=== PATIENT | female | born 1940 | race Caucasian/White ===

== ENCOUNTER 2017-07-02 10:25 | Outpatient (CLI) | payer MEDICARE ==
--- NOTE | 2017-07-07 18:00 | Mammography Report ---
DIGITAL SCREENING MAMMOGRAM: 07/02/2017 CLINICAL INDICATION: A 76-year-old with personal history of left breast cancer status post mastectomy and chemotherapy. COMPARISON: 09/2014, 04/2009. TECHNIQUE: Right CC and MLO views were obtained. FINDINGS: The right breast again demonstrates scattered fibroglandular densities. Punctate, typically benign calcifications are present. No suspicious masses, clustered microcalcifications, or regions of architectural distortion are identified. IMPRESSION: BENIGN FINDINGS. RECOMMENDATION: Routine annual screening unless otherwise clinically indicated. BI-RADS category 2 benign findings. STANDARD QUALIFYING STATEMENTS 1. This examination was reviewed with the aid of Computed-Aided Detection (CAD). 2. A negative or benign imaging report should not delay biopsy if clinically suspicious findings are present. Consider surgical consultation if warranted. More than 5% of cancers are not identified by imaging. 3. Dense breasts may obscure an underlying neoplasm. TD: 07/07/2017 15:50
== END 2017-07-02 10:26 | disposition home or self-care (01) ==
LOC: DI.S 10:25
PROVIDERS: ATTEND Internal Medicine
DX: Z12.31 Encounter for screening mammogram for malignant neoplasm of breast (principal); Z08 Encounter for follow-up examination after completed treatment for malignant neoplasm; Z85.3 Personal history of malignant neoplasm of breast

== ENCOUNTER 2017-07-14 08:11 | Outpatient (CLI) | payer MEDICARE ==
--- NOTE | 2017-07-14 12:18 | Ultrasound Report ---
COMPLETE ABDOMINAL ULTRASOUND: 07/14/2017 CLINICAL INDICATION: Right upper quadrant mass on clinical exam. TECHNIQUE: Real-time scanning was performed with data entry representative static images obtained. FINDINGS: The liver measures 18.7 cm. Hepatic echogenicity is increased, compatible with fatty infiltration. No focal parenchymal lesion is seen. The common bile duct measures 7 mm. The gallbladder demonstrates multiple calculi. No wall thickening or pericholecystic fluid is present. The visualized pancreas appears unremarkable. The kidneys are normal, with the right measuring 10.9 cm, and the left measuring 10.9 cm. The spleen measures 12.9 cm, and appears unremarkable. The abdominal aorta is normal in caliber. The inferior vena cava is unremarkable. No free fluid is present. IMPRESSION: ENLARGED LIVER, WITH FATTY INFILTRATION. CHOLELITHIASIS. NO EVIDENT MASS IDENTIFIED IN THE RIGHT UPPER QUADRANT, AND THE PATIENT WAS UNABLE TO LOCALIZE A PALPABLE ABNORMALITY AT THE TIME OF THE EXAMINATION. TD: 07/14/2017 12:00
== END 2017-07-14 08:12 | disposition home or self-care (01) ==
LOC: DI 08:11
PROVIDERS: ATTEND Internal Medicine
DX: R19.01 Right upper quadrant abdominal swelling, mass and lump (principal); K80.20 Calculus of gallbladder without cholecystitis without obstruction; K76.0 Fatty (change of) liver, not elsewhere classified
CPT/HCPCS: 76700

== ENCOUNTER 2017-07-14 11:36 | Emergency (ER) | payer MEDICARE ==
[2017-07-14] MEDS ORDERED: PROPARACAINE 0.5% OPHTH DROPS 15 ML RIGHTEYE STA (12:10)
[2017-07-14] MEDS ORDERED: levoFLOXacin 0.5% OPHTH DROPS 5 ML RIGHTEYE STA (12:43)
--- NOTE | 2017-07-14 12:46 | ED Physician Documentation ---
PD HPI OPHTHO - Stated complaint Stated Complaint: F/O R EYE - Chief complaint Chief Complaint: Heent - History obtained from History obtained from: Patient - History of Present Illness Timing - onset: Yesterday (76-year-old woman who does not wear contacts had gradual onset pain and a foreign body sensation of the right eye without visual deficit since yesterday while she was working outside.) Review of Systems Constitutional: denies: Fever, Chills Eyes: reports: Discharge, Irritation. 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 HEENT: Tonsil/Adenoidectomy - Present Medications Home Medications: Ambulatory Orders Medication Instructions Recorded Confirmed Metformin HCl 500 mg PO BID 02/05/14 03/15/14 Aspirin [Aspir 81] 81 mg PO DAILY 03/15/14 03/15/14 - Allergies Allergies/Adverse Reactions: Allergies Allergy/AdvReac Type Severity Reaction Status Date / Time Penicillins Allergy Unknown Verified 02/05/14 15:40 - Social History Does the pt smoke?: No Smoking Status: Never smoker Does the pt drink ETOH?: No Does the pt have substance abuse?: No - Immunizations Immunizations: TDAP >10years/unknown, Other immun current - POLST Patient has POLST: No PD ED PE NORMAL - Vitals Vital signs reviewed: Yes - General General: Alert and oriented X 3, No acute distress - HEENT HEENT: PERRL, EOMI, Other (There is no foreign body on the cornea or in the conjunctival fornices. She does have an area of flourescein uptake at about 2: 00 that is most consistent with a corneal abrasion but there is some infiltrate concerning for corneal ulcer.) - Neck Neck: Supple, no meningeal sign, No bony TTP - Neuro Neuro: Alert and oriented X 3, Normal speech - Psych Psych: Normal mood, Normal affect Results - Vitals Vitals: Vital Signs - 24 hr 07/14/17 11:44 Temperature 36.2 C L Heart Rate 94 Respiratory 16 Rate Blood Pressure 146/81 H O2 Saturation 99 Oxygen O2 Source Room air PD MEDICAL DECISION MAKING - ED course ED course: Seems more like a corneal abrasion, but could be very small corneal ulcer. She was started on topical madai quinolone and advised to use it every 2 hours until she sees an eye doctor within the next 24 hours. She declined prescription pain medication. Departure - Departure Disposition: 01 Home, Self Care Clinical Impression: Corneal abrasion, right Qualifiers: Encounter type: initial encounter Qualified Code(s): S05.01XA - Injury of conjunctiva and corneal abrasion without foreign body, right eye, initial encounter Hypertension Qualifiers: Hypertension type: essential hypertension Qualified Code(s): I10 - Essential ( primary) hypertension Condition: Good Record reviewed to determine appropriate education?: Yes Follow-Up: Filipe Sin MD [Provider Admit Priv/Credential] - Comments: Use the eyedrop to the right eye, 1 drop every 2 hours until you follow-up with an Investor Relations Manager. You need to see an quantitative consultant within the next 24 hours , you can either use Dr. Sin listed on this form or [facility], their phone number is [phone]. Return if worsening.
[2017-07-14 12:55] VITALS: BP 138/81
== END 2017-07-14 12:53 | disposition home or self-care (01) ==
LOC: ED 11:36
DX: S05.01XA Injury of conjunctiva and corneal abrasion without foreign body, right eye, initial encounter (principal); X58.XXXA Exposure to other specified factors, initial encounter; R19.01 Right upper quadrant abdominal swelling, mass and lump; I10 Essential (primary) hypertension; E11.9 Type 2 diabetes mellitus without complications; Z79.84 Long term (current) use of oral hypoglycemic drugs; Z79.82 Long term (current) use of aspirin
CPT/HCPCS: 76700; 99283; A9270; J3490

== ENCOUNTER 2019-05-29 17:14 | Outpatient (CLI) | payer MEDICARE | END 2019-05-29 17:15 | disposition EMS.NT | LOC: EMS 17:14 | PROVIDERS: ATTEND Surgery | DX: M79.602 Pain in left arm (principal) ==

== ENCOUNTER 2019-08-30 07:19 | Outpatient (CLI) | payer MEDICARE ==
[2019-08-30 15:42] LABS: BASOPHILS # (AUTO) 0.1 10^3/uL (0.0-0.1); BASOPHILS % (AUTO) 1.2 %; EOSINOPHILS # (AUTO) 0.3 10^3/uL (0.0-0.7); EOSINOPHILS % (AUTO) 4.8 %; HGB - HEMOGLOBIN 15.3 g/dL (12.0-16.0); LYMPHOCYTES # (AUTO) 1.8 10^3/uL (1.5-3.5); LYMPHOCYTES % (AUTO) 26.1 %; MEAN CORPUSCULAR HEMOGLOBIN 29.1 pg (27.0-31.0); MEAN PLATELET VOLUME 11.3 fL (7.9-10.8); MONOCYTES # (AUTO) 0.7 10^3/uL (0.0-1.0); MONOCYTES % (AUTO) 10.5 %; NEUTROPHILS # (AUTO) 3.9 10^3/uL (1.5-6.6); RED BLOOD COUNT 5.25 10^6/uL (4.20-5.40); RED CELL DISTRIBUTION WIDTH 13.1 % (12.0-15.0); WHITE BLOOD COUNT 6.8 x10^3/uL (4.8-10.8)
[2019-08-30 16:04] LABS: CREATININE,URINE 79.8 mg/dL; MICROALBUMIN,URINE 0.4 mg/dL (0-300.0)
[2019-08-30 16:17] LABS: ALBUMIN 4.3 g/dL (3.2-5.5); ALBUMIN/GLOBULIN RATIO 1.4 (1.0-2.2); ALKALINE PHOSPHATASE 64 IU/L (42-121); ALT ALANINE AMINOTRANSFERASE 21 IU/L (10-60); AST ASPARTATE AMINOTRANSFERASE 15 IU/L (10-42); BILIRUBIN,TOTAL 0.9 mg/dL (0.2-1.0); BUN - BLOOD UREA NITROGEN 20 mg/dL (6-20); CALCIUM 9.4 mg/dL (8.5-10.3); CARBON DIOXIDE - CO2 26 mmol/L (21-32); CHLORIDE 99 mmol/L (101-111); CHOL/HDL RATIO 2.9 (<4.4); CHOLESTEROL 198 mg/dL; CREATININE 0.9 mg/dL (0.4-1.0); GLUCOSE 152 mg/dL (70-100); HDL CHOLESTEROL 68 mg/dL; LDL CHOLESTEROL,CALCULATED 98 mg/dL; LDL/HDL RATIO 1.4 (<4.4); SODIUM 136 mmol/L (135-145); TOTAL PROTEIN 7.3 g/dL (6.7-8.2); VLDL CHOLESTEROL 32 mg/dL
[2019-08-30 16:23] LABS: PLATELET ESTIMATE, MANUAL NORMAL (130-450,000) (NORMAL); PLATELET MORPHOLOGY PLATELET CLUMPING (NORMAL); RBC MORPHOLOGY (MULTIPLE) NORMAL APPEARANCE (NORMAL)
[2019-08-30 16:33] LABS: HB2 TOTAL 16.5 g/dL; HEMOGLOBIN A1C 0.74 g/dL; HEMOGLOBIN A1C % 6.3 % (4.6-6.2)
== END 2019-08-30 07:20 | disposition home or self-care (01) ==
LOC: LAB.S 07:19
PROVIDERS: ATTEND Nurse Practitioner Family
DX: E11.9 Type 2 diabetes mellitus without complications (principal)
CPT/HCPCS: 36415; 80053; 80061; 82043; 82570; 83036; 83721; 85025

== ENCOUNTER 2021-09-06 10:39 | Outpatient (CLI) | payer MEDICARE ==
--- NOTE | 2021-09-06 12:55 | XRAY Report ---
PROCEDURE: Chest 2 View X-Ray INDICATIONS: CHRONIC COUGH TECHNIQUE: 2 view(s) of the chest. COMPARISON: None. FINDINGS: Surgical changes and devices: Surgical clips are projecting over the region of left axilla and left u pper lung field. Lungs and pleura: No pleural effusions or pneumothorax. Lungs are clear. Mediastinum: Mediastinal contours are normal. Heart size is normal. Bones and chest wall: No suspicious bony abnormalities. Soft tissues appear unremarkable. IMPRESSION: No acute cardiopulmonary pathology. Reviewed by: Aram Amaya MD on 09/06/2021 12:54 PM PDT Approved by: Aram Amaya MD on 09/06/2021 12:54 PM PDT Station ID: [id number]
== END 2021-09-06 10:40 | disposition home or self-care (01) ==
LOC: DI.S 10:39
PROVIDERS: ATTEND Nurse Practitioner Family
DX: R05.3 Chronic cough (principal)

== ENCOUNTER 2021-10-28 06:19 | Day surgery (SDC) | payer MEDICARE ==
[2021-10-28] MEDS ORDERED: LACTATED RINGERS 1,000 ML IV ONE ×2 (06:46→08:25)
--- NOTE | 2021-10-28 07:22 | ANESTHESIA ---
Pre-Anesthesia VS, & Labs - Diagnosis positive cologuard - Procedure colonoscopy Vital Signs: Temp Pulse Resp BP Pulse Ox 36.6 C 83 17 171/75 H 96 10/28/21 06:47 10/28/21 06:47 10/28/21 06:47 10/28/21 06:47 10/28/21 06:47 Height: 5 ft 9 in Weight (kg): 97.9 kg Body Mass Index: 31.8 BMI Classification: Obese - NPO >8 hours - Is Patient ?: No - Lab Results Current Lab Results: Laboratory Tests 10/28/21 06:57: POC Whole Bld Glucose 173 H Home Medications and Allergies Home Medications: Ambulatory Orders Atorvastatin [Lipitor] 10 mg PO DAILY 10/22/21 Calcium Carbonate [Calcium] 1,200 mg PO DAILY 10/22/21 Cholecalciferol (Vitamin D3) [Vitamin D3] 125 mcg PO DAILY 10/22/21 Lisinopril [Zestril] 10 mg PO DAILY 10/22/21 Metformin HCl 1,000 mg PO BID 02/05/14 Aspirin [Aspir 81] 81 mg PO DAILY 03/15/14 Atorvastatin [Lipitor] 10 mg PO DAILY 10/22/21 Calcium Carbonate [Calcium] 1,200 mg PO DAILY 10/22/21 Cholecalciferol (Vitamin D3) [Vitamin D3] 125 mcg PO DAILY 10/22/21 Lisinopril [Zestril] 10 mg PO DAILY 10/22/21 Allergies/Adverse Reactions: Allergies Allergy/AdvReac Type Severity Reaction Status Date / Time Penicillins Allergy Unknown Verified 10/28/21 06:46 Anes History & Medical History - Anesthetic History Anesthesia Complications: reports: No previous complications - Medical History Cardiovascular: reports: Hypertension, High cholesterol Pulmonary: reports: None Gastrointestinal: reports: None Urinary: reports: Nocturia, Frequency Musculoskeletal: reports: Osteopenia Endocrine/Autoimmune: reports: Type 2 diabetes Skin: reports: None Smoking Status: Never smoker History of Cancer?: Yes (breast cancer) - Surgical History Eyes Ears Nose Throat (EENT): reports: Tonsil/Adenoidectomy Gynecologic: reports: Mastectomy Exam General: Alert Dental: WNL Mouth Opening: Greater than 4 Fingerbreadths Mallampati classification: II Respiratory: Lungs clear Cardiovascular: Regular rate Plan Anesthesia Type: Total IV Consent for Procedure(s) Verified and Reviewed: Yes Code Status: Attempt Resuscitation ASA classification: 3-Severe systemic disease Is this case an emergency?: No
[2021-10-28] MEDS ORDERED: PROPOFOL 500 MG/50 ML 500 MG/50 ML VIAL ONE (07:24)
[2021-10-28] MEDS ORDERED: SIMETHICONE 40 MG/0.6 ML 30 ML BOTTLE PO ONE (07:54)
[2021-10-28] MEDS ORDERED: PROPOFOL 200 MG/20 ML VIAL IVP ONE (08:30)
[2021-10-28 08:59] VITALS: BP 129/75
--- NOTE | 2021-10-28 11:26 | ANESTHESIA POST OP EVALUATION ---
Anesthesia Post Eval - Post Anesthesia Eval Vitals: Last Vital Signs Temp 36.3 C L 10/28/21 08:58 Pulse 64 10/28/21 08:58 Resp 15 10/28/21 08:58 BP 129/75 10/28/21 08:58 Pulse Ox 96 10/28/21 08:58 CV Function Including HR & BP: Stable Pain Control: Satisfactory Nausea & Vomiting: Negative Mental Status: Baseline Respiratory Status: Airway Patent Hydration Status: Satisfactory Anesthesia Complications: None
== END 2021-10-28 06:20 | disposition home or self-care (01) ==
LOC: SDS 06:19
PROVIDERS: ATTEND Surgery
PROC: 0DBN8ZX Excision of Sigmoid Colon, Via Natural or Artificial Opening Endoscopic, Diagnostic (ICD-10-PCS; 2021-10-28)
PROC: 0DBH8ZX Excision of Cecum, Via Natural or Artificial Opening Endoscopic, Diagnostic (ICD-10-PCS; principal; 2021-10-28 07:30)
DX: C18.7 Malignant neoplasm of sigmoid colon (principal); K57.30 Diverticulosis of large intestine without perforation or abscess without bleeding; K63.5 Polyp of colon; I10 Essential (primary) hypertension; E11.9 Type 2 diabetes mellitus without complications; E66.9 Obesity, unspecified; Z68.31 Body mass index [BMI] 31.0-31.9, adult; Z79.84 Long term (current) use of oral hypoglycemic drugs; Z87.891 Personal history of nicotine dependence
CPT/HCPCS: 45385; A9270; J7120

== ENCOUNTER 2021-12-11 13:56 | Outpatient (CLI) | payer MEDICARE ==
[2021-12-11 14:06] LABS: HCT - HEMATOCRIT 43.8 % (37.0-47.0); HGB - HEMOGLOBIN 14.1 g/dL (12.0-16.0); MEAN CORPUSCULAR HEMOGLOBIN 29.3 pg (27.0-31.0); MEAN CORPUSCULAR HGB CONC 32.2 g/dL (32.0-36.0); MEAN CORPUSCULAR VOLUME 90.9 fL (81.0-99.0); RED BLOOD COUNT 4.82 10^6/uL (4.20-5.40); RED CELL DISTRIBUTION WIDTH 12.4 % (12.0-15.0); WHITE BLOOD COUNT 10.8 x10^3/uL (4.8-10.8)
== END 2021-12-11 13:57 | disposition home or self-care (01) ==
LOC: LAB 13:56
PROVIDERS: ATTEND Surgery
DX: C18.7 Malignant neoplasm of sigmoid colon (principal)
CPT/HCPCS: 36415; 85027

== ENCOUNTER 2021-12-31 15:08 | Outpatient (CLI) | payer MEDICARE ==
[2021-12-31] MEDS ORDERED: iohexoL-300 100 ML VIAL ONE (15:17)
[2021-12-31 15:41] LABS: CREATININE 0.9 mg/dL (0.4-1.0)
[2021-12-31] MEDS ORDERED: iohexoL-300 100 ML VIAL IVP ONE (17:43)
--- NOTE | 2022-01-01 08:53 | CT Report ---
PROCEDURE: ABDOMEN/PELVIS W INDICATIONS: COLON CA TECHNIQUE: After the administration of contrast, 5 mm thick sections acquired from the diaphragms to the sym physis. 5 mm thick coronal and sagittal reformats were acquired. For radiation dose reduction, the following was used: automated exposure control, adjustment of mA and/or kV according to patient size . COMPARISON: None. FINDINGS: Image quality: Excellent. ABDOMEN: Lung bases: Lung bases are clear. Heart size is normal. Solid organs: Liver: The liver has no mass or intrahepatic biliary ductal dilatation. The portal vein and hepatic veins are patent. Biliary: The gallbladder has a stone near the neck of the gallbladder. The gallbladder is distended, however there is no wall thickening or pericholecystic fluid or inflammation to suggest cholecystitis . [] Pancreas: The pancreas has no mass or ductal dilatation. No surrounding inflammation. Spleen: Normal size. No mass. Adrenal glands: No hypertrophy or nodules. Kidneys: No obstructive calculus or hydronephrosis. No solid mass. No cystic mass. Bowel: The distal esophagus and stomach are normal. The small bowel has a normal caliber and appeara nce. The terminal ileum is normal. The large bowel has diverticulosis without evidence of diverticu litis. No colonic mass is identified by CT. Free air/free fluid: No free air or free fluid. Abdominal wall: No abdominal wall mass or hernia. Retroperitoneum: No retroperitoneal or mesenteric adenopathy by size criteria. Aorta and inferior ve na cava are normal in size. Lymph nodes: No adenopathy. PELVIS: Genitourinary: Bladder wall thickness is normal. Miscellaneous: No inguinal hernias or adenopathy. BONES: No suspicious bony lesions. No vertebral body compression fractures. Degenerative changes of the lumbar spine with disc disease at L2-3. Changes of prior right laminotomy at L4 are seen. IMPRESSION: 1. No acute abnormality. 2. No colonic mass or evidence of metastatic disease is identified. 3. Small gallstone in the neck of the gallbladder with enlargement of the gallbladder but no evidence of acute cholecystitis. Consider ultrasound if there is symptomatology related to the gallbladder. Reviewed by: Oj Mercer on 01/01/2022 8:51 AM PST Approved by: Oj Mercer on 01/01/2022 8:51 AM PST Station ID: [id number]
--- NOTE | 2022-01-01 09:09 | CT Report ---
PROCEDURE: CHEST W INDICATIONS: COLON CA CONTRAST:100mL Omni 300 TECHNIQUE: After the administration of intravenous contrast, 1 mm axial images were acquired from the pulmonary apices through the posterior costophrenic angles. Axial 5 mm soft tissue kernel reconstructions were performed as well as 8 mm axial MIP and coronal and sagittal 5 mm reformations. For radiation dose reduction, the following was used: automated exposure control, adjustment of mA and/or kV according to patient size. COMPARISON: None. FINDINGS: Image quality: Excellent. Lungs and pleura: 7 x 5 mm nodule in the right lower lobe series 3 image 233. Several subtle groundg lass opacities measuring approximately 1 to 2 cm in the apices bilaterally. No acute air space opacit ies. No pleural effusions or pneumothorax. Central and peripheral airways are patent and normal in caliber. Mediastinum: Heart size is normal. No pericardial effusion. No mediastinal or hilar adenopathy by size criteria. Thoracic aorta and central pulmonary arteries are normal in size. Esophagus is nazia l in caliber. No hiatal hernia. Bones and chest wall: No suspicious bony lesions. No vertebral body compression fractures. No axil armando or supraclavicular adenopathy by size criteria. The thyroid is normal in size and there are no incidental findings.. Abdomen: Visualized upper abdominal solid organs appear normal. Upper abdominal bowel loops are nor mal in caliber. IMPRESSION: 1. 7 x 5 mm nodule in the right lower lobe. No comparison imaging available to assess for stability, therefore a metastatic lesion cannot be excluded. This lesion is too small for biopsy. Follow-up CT i n 3 months to assess for growth. 2. Nonspecific subtle groundglass opacities in the apices. 3. No other evidence of metastatic disease. Reviewed by: Oj Mercer on 01/01/2022 9:07 AM [facility] Approved by: Oj Mercer on 01/01/2022 9:07 AM PST Station ID: [id number]
== END 2021-12-31 15:09 | disposition home or self-care (01) ==
LOC: LAB 15:08
PROVIDERS: ATTEND Surgery
DX: C18.7 Malignant neoplasm of sigmoid colon (principal); K80.20 Calculus of gallbladder without cholecystitis without obstruction; K82.8 Other specified diseases of gallbladder; R91.1 Solitary pulmonary nodule; R91.8 Other nonspecific abnormal finding of lung field
CPT/HCPCS: 36415; 71260; 74177; 82565; Q9967

== ENCOUNTER 2022-03-31 16:19 | Outpatient (CLI) | payer MEDICARE | END 2022-03-31 16:20 | disposition critical access hospital (66) | LOC: EMS 16:19 | DX: M54.2 Cervicalgia (principal); M54.6 Pain in thoracic spine; R42 Dizziness and giddiness; R11.0 Nausea; W18.39XA Other fall on same level, initial encounter; Y93.01 Activity, walking, marching and hiking; Y92.832 Beach as the place of occurrence of the external cause | CPT/HCPCS: A0425; A0427 ==

== ENCOUNTER 2022-03-31 16:28 | Emergency (ER) | payer MEDICARE ==
--- NOTE | 2022-03-31 17:15 | ED Physician Documentation ---
History of Present Illness - Stated complaint Stated Complaint: GLF - Chief complaint Chief Complaint: Trauma Hd/Nk - Additonal information Additional information: 81-year-old female is brought to the emergency department for evaluation and neck pain. [place] striking her head on [place]. She reports pain in her mid cervical spine. Due to pain and fear that she could have broken her neck she was unable to get up. She presents with no paresthesias. She is not anticoagulated. she presents in a rigid cervical cervical collar Past medical history Mo significant for hypertension and diabetes managed on metformin only. 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 HEENT: Tonsil/Adenoidectomy - Present Medications Home Medications: Ambulatory Orders Medication Instructions Recorded Confirmed Metformin HCl 1,000 mg PO BID 02/05/14 03/31/22 Aspirin [Aspir 81] 81 mg PO DAILY 03/15/14 03/31/22 Atorvastatin [Lipitor] 10 mg PO DAILY 10/22/21 03/31/22 Calcium Carbonate [Calcium] 1,200 mg PO DAILY 10/22/21 03/31/22 Cholecalciferol (Vitamin D3) 125 mcg PO DAILY 10/22/21 03/31/22 [Vitamin D3] Lisinopril [Zestril] 10 mg PO DAILY 10/22/21 03/31/22 - Allergies Allergies/Adverse Reactions: Allergies Allergy/AdvReac Type Severity Reaction Status Date / Time Penicillins Allergy Unknown Verified 03/31/22 16:43 - Social History Does the pt smoke?: No Smoking Status: Never smoker Does the pt drink ETOH?: No Does the pt have substance abuse?: No - Immunizations Immunizations: TDAP >10years/unknown, Other immun current - POLST Patient has POLST: No PD ED PE EXPANDED - General General: Alert, No acute distress - Neck Neck: Other (Patient presents in a c-collar. She does have midline spinous ten derness without step-off or deformity.) - Extremities Extremities: Other (Normal strength at shoulders biceps elbows hands and wrist. No paresthesias. 2+ radial pulse) - Neuro Neuro: Alert and Oriented X 3, CNII-XII intact, Normal gait, Normal finger nose, Normal speech - GCS Eye Opening: Spontaneous Motor: Obeys Commands Verbal: Oriented Total: 15 Results - Vitals Vitals: Vital Signs - 24 hr 03/31/22 03/31/22 03/31/22 16:37 18:13 21:06 Temperature 36.6 C 36.9 C Heart Rate 89 97 93 Respiratory 16 16 16 Rate Blood Pressure 170/75 H 162/73 H 165/96 H O2 Saturation 94 96 96 Oxygen O2 Source Room air - Rads (name of study) cervical CT Radiology: Final report received (Mildly displaced fractures are seen involving the anterior aspect of inferior endplate of the C5 vertebral body with associated thickening of the prevertebral soft tissues.) CT head Radiology: Final report received (Unremarkable intracranial study for age without acute intracranial hemorrhage or other significant intracranial abnormality) PD Medical Decision Making - ED course Complexity details: reviewed results, re-evaluated patient, considered differential, d/w patient, d/w lead consultant (Dr. Jung Neurosurgeon [facility]) ED course: 81-year-old female presents emergency department after ground-level fall at the beach in which she hit her head on [place] and had immediate neck pain. She however did not have any neurological compromise or arm or motor weakness. She was transported here in a rigid cervical collar via EMS and on presentation is a Glascow of 15 with no focal deficits. Given the history CT of the head and cervical spine was completed. No acute findings within the brain. There is a mildly displaced fracture involving the anterior aspect of the inferior endplate of C5 vertebral body. This finding and case was discussed with on-call neurosurgeon Dr. Jung at [facility]. The imaging was personally evaluated by him. He feels that this is a stable fracture that rarely would require Neurosurgical intervention. He makes a recommendation for the patient to wear rigid collar for at least the next 3 to 8 weeks. The patient will be followed up at the [facility] spine clinic for repeat imaging in 3 weeks. Patient is discharged home in stable condition with usual emergent return precautions discussed. She declined analgesia while in the hospital and on discharge. Departure - Departure Disposition: 01 Home, Self Care Clinical Impression: C5 cervical fracture Qualifiers: Encounter type: initial encounter Fracture type: closed Fracture morphology: other fracture Fracture alignment: nondisplaced Qualified Code(s): S12.491A - Other nondisplaced fracture of fifth cervical vertebra, initial encounter for closed fracture Condition: Serious Record reviewed to determine appropriate education?: Yes Follow-Up: Paulina Reid ARNP [Primary Care Provider] - Comments: Judi wilhelm came to the emergency department today after you fell at the beach and developed pain in your neck. The CT of your head did not show any bruising or bleeding. The CT of your cervical spine showed fracture of the anterior aspect of the inferior endplate of C5 vertebral body. This is typically considered a stable fracture and rarely require surgical intervention. I have discussed your case with Dr. Jung neurosurgeon at [facility]. He makes the recommendation for you to wear the rigid cervical collar for at least the next 3 weeks but likely 8 weeks. They would like to see you in follow-up at the [address] [place] [address] spine clinic. You can call [phone] in the next 48 hours in order to help arrange follow-up. In general you can take Tylenol or ibuprofen for discomfort. If at any point you have further falls, you have numbness or weakness in your arms then you should return immediately to the emergency department. I encourage you to discuss this ED visit very closely with your primary care provider.
--- NOTE | 2022-03-31 18:09 | CT Report ---
PROCEDURE: HEAD WO INDICATIONS: glf TECHNIQUE: Noncontrast 4.5 mm thick angled axial sections acquired from the foramen magnum to the vertex. For r adiation dose reduction, the following was used: automated exposure control, adjustment of mA and/or kV according to patient size. COMPARISON: Correlation is made with the accompanying cervical spine CT dated 03/31/2022. FINDINGS: Image quality: There is streak artifact seen through the skull base. CSF spaces: Basal cisterns are patent. No extra-axial fluid collections. Ventricles are normal in size and shape. Brain: No midline shift. No intracranial masses or hemorrhage. Wasserman-white matter interface is norm al. Age-appropriate brain parenchymal volume loss and chronic small vessel ischemic change can be se en. Skull and face: Calvarium and visualized facial bones are intact, without suspicious lesions. Hyper ostosis frontalis is incidentally noted, which is not frankly abnormal for a female patient of this a ge. Sinuses: Visualized sinuses and mastoids are clear. IMPRESSION: Unremarkable intracranial study for age, without acute intracranial hemorrhage or other significant intracranial abnormality. Reviewed by: Ubaldo Ojeda MD on 03/31/2022 5:08 PM [facility] Approved by: Ubaldo Ojeda MD on 03/31/2022 5:08 PM [facility] Station ID: [id number]
--- NOTE | 2022-03-31 18:14 | CT Report ---
PROCEDURE: CERVICAL SPINE WO INDICATIONS: neck pain after fall TECHNIQUE: Noncontrast 3 mm thick sections acquired from the skull base to the T4 level. Sagittal and coronal r eformats were then constructed. For radiation dose reduction, the following was used: automated exp osure control, adjustment of mA and/or kV according to patient size. COMPARISON: Prior cervical spine CT, 02/05/2014. Correlation is also made with the accompanying head CT, 03/31/2022 FINDINGS: Image quality: Motion artifact is noted. Bones: There is a mildly displaced fracture seen involving the anterior inferior endplate of the C5 vertebral body, as seen on series 14 images 34 through 44. Visualized superior ribs are intact. Multilevel degenerative changes are seen, with focal abnormality at the C1-C2 interface anteriorly. T here is partial calcification of the C3-C4 level. Minimal grade 1 anterolisthesis is seen at C5-C6. A t C6-C7, there is moderate disc space narrowing seen. Soft tissues: Their is thickening of the prevertebral soft tissues. No paravertebral hematomas. No a pical pneumothoraces. IMPRESSION: Mildly displaced fractures are seen involving the anterior aspect of the inferior endplate of the C5 vertebral body, with associated thickening of the prevertebral soft tissues. Note: Case discussed by telephone with Mercedes Canales at 5:11 PM [place] time on 03/31/2022. Reviewed by: Ubaldo Ojeda MD on 03/31/2022 5:13 PM [facility] Approved by: Ubaldo Ojeda MD on 03/31/2022 5:13 PM [facility] Station ID: [id number]
[2022-03-31 21:06] VITALS: BP 165/96
== END 2022-03-31 21:30 | disposition home or self-care (01) ==
LOC: EDUNIT# → ED 16:28
DX: S12.400A Unspecified displaced fracture of fifth cervical vertebra, initial encounter for closed fracture (principal); W01.198A Fall on same level from slipping, tripping and stumbling with subsequent striking against other object, initial encounter; Y93.01 Activity, walking, marching and hiking; Y92.832 Beach as the place of occurrence of the external cause
CPT/HCPCS: 99284

== ENCOUNTER 2022-04-21 10:30 | Outpatient (CLI) | payer MEDICARE ==
--- NOTE | 2022-04-21 14:12 | CT Report ---
PROCEDURE: CHEST WO INDICATIONS: ABN CT CHEST TECHNIQUE: Noncontrast 1mm axial images were acquired from the pulmonary apices to the posterior costophrenic an gles. Axial 5 mm soft tissue kernel reconstructions were performed as well as 8 mm axial MIP and cor onal and sagittal 5 mm reformations. For radiation dose reduction, the following was used: automate d exposure control, adjustment of mA and/or kV according to patient size. COMPARISON: 12/31/2021 FINDINGS: Image quality: Excellent. Lungs and pleura: A 5 x 7 mm nodule in the right lower lobe series 5 image 191 with smooth borders is unchanged. Several groundglass opacities in the apices previously described are unchanged. No acute air space opacities. No pleural effusions or pneumothorax. Central and peripheral airways are paten t and normal in caliber. Mediastinum: Heart size is normal. No pericardial effusion. No mediastinal adenopathy by size crit eria. Thoracic aorta and central pulmonary arteries are normal in size. Esophagus is normal in jovanni damari. No hiatal hernia. Bones and chest wall: No suspicious bony lesions. No vertebral body compression fractures. No axil armando or supraclavicular adenopathy by size criteria. The thyroid is normal in size and there are no incidental findings. Abdomen: Visualized upper abdominal solid organs and bowel loops appear normal in the absence of con trast. IMPRESSION: 1. 5 x 7 mm nodule in the right lower lobe is unchanged. Recommend follow-up CT in 12 months to asses s for long-term stability. 2. Nonspecific subtle groundglass opacities in the apices are unchanged. Reviewed by: Oj Mercer on 04/21/2022 1:10 PM [facility] Approved by: Oj Mercer on 04/21/2022 1:10 PM [facility] Station ID: [id number]
== END 2022-04-21 10:31 | disposition home or self-care (01) ==
LOC: DI 10:30
PROVIDERS: ATTEND Surgery
DX: R91.8 Other nonspecific abnormal finding of lung field (principal); R91.1 Solitary pulmonary nodule

== ENCOUNTER 2022-04-21 10:48 | Outpatient (CLI) | payer MEDICARE ==
--- NOTE | 2022-04-21 16:27 | CT Report ---
PROCEDURE: CERVICAL SPINE WO INDICATIONS: CERVICAL FX TECHNIQUE: Noncontrast 3 mm thick sections acquired from the skull base to the T4 level. Sagittal and coronal r eformats were then constructed. For radiation dose reduction, the following was used: automated exp osure control, adjustment of mA and/or kV according to patient size. COMPARISON: CT dated 03/31/2022 FINDINGS: Image quality: Excellent. Bones: No change in mildly displaced fracture of the anterior aspect of the inferior C5 endplate. Mu ltilevel disc space narrowing and endplate osteophyte formation. Visualized superior ribs are intact. Soft tissues: Prevertebral soft tissues are normal in thickness. No paravertebral hematomas. No ap ical pneumothoraces. IMPRESSION: No change in C5 endplate fracture. Reviewed by: Atul Murcia MD on 04/21/2022 4:26 PM PST Approved by: Atul Murcia MD on 04/21/2022 4:26 PM PST Station ID: [id number]
== END 2022-04-21 10:49 | disposition home or self-care (01) ==
LOC: DI 10:48
PROVIDERS: ATTEND Nurse Practitioner Family
DX: S12.400D Unspecified displaced fracture of fifth cervical vertebra, subsequent encounter for fracture with routine healing (principal); R91.8 Other nonspecific abnormal finding of lung field; R91.1 Solitary pulmonary nodule

== ENCOUNTER 2022-05-30 16:18 | Outpatient (CLI) | payer MEDICARE ==
--- NOTE | 2022-05-30 16:49 | XRAY Report ---
PROCEDURE: Foot 3 View LT INDICATIONS: XR LEFT FOOT LUMP TECHNIQUE: 3 views of the foot were acquired. COMPARISON: None. FINDINGS: Bones: No fractures or dislocations. Osteoarthritic changes are noted throughout left foot. Stenosis involving medial cortex of first distal phalangeal base is seen. Similar small exostosis inv olving lateral aspect of first proximal phalangeal base is also noted. No suspicious bony lesions. Soft tissues: No suspicious soft tissue calcifications or masses. IMPRESSION: Osteoarthritic changes throughout left foot with benign-appearing exostosis involving first distal ph alangeal base as above. No acute fracture or dislocation. No suspicious bony lesions. Reviewed by: Aram Amaya MD on 05/30/2022 4:48 PM PDT Approved by: Aram Amaya MD on 05/30/2022 4:48 PM PDT Station ID: [id number]
== END 2022-05-30 16:19 | disposition home or self-care (01) ==
LOC: DI.S 16:18
PROVIDERS: ATTEND Family Medicine
DX: M19.072 Primary osteoarthritis, left ankle and foot (principal); M89.9 Disorder of bone, unspecified

== ENCOUNTER 2022-11-25 09:28 | Day surgery (SDC) | payer MEDICARE ==
[2022-11-25] MEDS ORDERED: LACTATED RINGERS 1,000 ML IV ONE (09:32)
[2022-11-25] MEDS ORDERED: PROPOFOL 500 MG/50 ML 500 MG/50 ML VIAL ONE (09:57)
--- NOTE | 2022-11-25 10:12 | ANESTHESIA ---
Pre-Anesthesia VS, & Labs - Diagnosis screening - Procedure colonoscopy Vital Signs: Temp Pulse Resp BP Pulse Ox O2 Flow Rate 36 C L 82 16 152/76 H 96 11/25/22 09:37 11/25/22 09:37 11/25/22 09:37 11/25/22 09:37 11/25/22 09:37 Height: 5 ft 8 in Weight (kg): 92 kg Body Mass Index: 30.8 BMI Classification: Obese - NPO >8 hours - Is Patient ?: No - Lab Results Current Lab Results: Laboratory Tests 11/25/22 09:56: POC Whole Bld Glucose 152 H Lab results reviewed: Yes Home Medications and Allergies Metformin HCl 1,000 mg PO BID 02/05/14 Aspirin [Aspir 81] 81 mg PO DAILY 03/15/14 Atorvastatin [Lipitor] 10 mg PO DAILY 10/22/21 Calcium Carbonate [Calcium] 1,200 mg PO DAILY 10/22/21 Cholecalciferol (Vitamin D3) [Vitamin D3] 125 mcg PO DAILY 10/22/21 Lisinopril [Zestril] 10 mg PO DAILY 10/22/21 Allergies/Adverse Reactions: Allergies Allergy/AdvReac Type Severity Reaction Status Date / Time Penicillins Allergy Unknown Verified 03/31/22 16:43 Anes History & Medical History - Anesthetic History Anesthesia Complications: reports: No previous complications Family history of Anesthesia Complications: Denies Family history of Malignant Hyperthermia: Denies - Medical History Cardiovascular: reports: Hypertension, High cholesterol Pulmonary: reports: None Gastrointestinal: reports: Colon polyps Urinary: reports: None Neuro: reports: None Musculoskeletal: reports: None Endocrine/Autoimmune: reports: Type 2 diabetes Skin: reports: None Smoking Status: Never smoker Psychosocial: reports: No issues indicated - Surgical History General: reports: Colonoscopy Eyes Ears Nose Throat (EENT): reports: Tonsil/Adenoidectomy Gynecologic: reports: Mastectomy Exam General: Alert, Oriented x3, Cooperative Dental: WNL Mouth Openin Fingerbreadth Neck Mobility: Normal Mallampati classification: II Thyromental Distance: 4-6 cm Respiratory: Lungs clear Cardiovascular: Regular rate Plan Anesthesia Type: General, MAC Consent for Procedure(s) Verified and Reviewed: Yes Code Status: Attempt Resuscitation ASA classification: 2-Mild systemic disease Is this case an emergency?: No
[2022-11-25] MEDS ORDERED: PROPOFOL 200 MG/20 ML VIAL IVP ONE ×2 (11:06→11:12)
[2022-11-25] MEDS ORDERED: LACTATED RINGERS 200 ML IV ONE (11:17)
[2022-11-25 11:21] VITALS: O2SAT 98
[2022-11-25 11:39] VITALS: BP 133/76
--- NOTE | 2022-11-25 14:49 | ANESTHESIA POST OP EVALUATION ---
Anesthesia Post Eval - Post Anesthesia Eval Vitals: Last Vital Signs Temp 36.1 C L 11/25/22 11:17 Pulse 64 11/25/22 11:45 Resp 18 11/25/22 11:45 BP 133/76 H 11/25/22 11:45 Pulse Ox 98 11/25/22 11:45 O2 Flow Rate CV Function Including HR & BP: Stable Pain Control: Satisfactory Nausea & Vomiting: Negative Mental Status: Baseline Respiratory Status: Airway Patent Hydration Status: Satisfactory Anesthesia Complications: None
== END 2022-11-25 09:29 | disposition home or self-care (01) ==
LOC: SDS 09:28
PROVIDERS: ATTEND Surgery
PROC: 0DBN8ZX Excision of Sigmoid Colon, Via Natural or Artificial Opening Endoscopic, Diagnostic (ICD-10-PCS; principal; 2022-11-25 10:30)
DX: C18.7 Malignant neoplasm of sigmoid colon (principal); K57.30 Diverticulosis of large intestine without perforation or abscess without bleeding; K64.9 Unspecified hemorrhoids; E11.9 Type 2 diabetes mellitus without complications; Z79.84 Long term (current) use of oral hypoglycemic drugs; I10 Essential (primary) hypertension; E78.5 Hyperlipidemia, unspecified; E66.9 Obesity, unspecified; Z68.30 Body mass index [BMI] 30.0-30.9, adult
CPT/HCPCS: 45385; J7120